=== PATIENT | female | born 1930 | race Caucasian/White ===

== ENCOUNTER → 2016-10-10 | Outpatient (CLI) | payer OTHER | LOC: FIMAGING 08:23 | PROVIDERS: ATTEND Internal Medicine | DX: Z13.820 Encounter for screening for osteoporosis (principal); M81.0 Age-related osteoporosis without current pathological fracture; Z78.0 Asymptomatic menopausal state; Z90.710 Acquired absence of both cervix and uterus; Z90.722 Acquired absence of ovaries, bilateral ==

== ENCOUNTER 2016-11-25 15:44 | Emergency (ER) | payer OTHER ==
[2016-11-25 15:58] VITALS: BP 138/89; PULSE 74; RESP 18; TEMP 97.5; O2SAT 94
--- NOTE | 2016-11-25 16:11 | EDPHY ---
H & P Stated Complaint: Laceration left forearm,slipped on carpet at home 12 today Time Seen by Provider: 11/25/16 16:04 HPI/ROS: CHIEF COMPLAINT: Left forearm skin tear HISTORY OF PRESENT ILLNESS: Patient is an 86-year-old female who tripped on her rug and fell around 4 hours ago. She had guests coming over to play games so she put a Band-Aid on it and then entertained her guests. After they left she came here to the emergency department. She did trim off the skin around her avulsion. She has placed antibiotic ointment on top of it. She is seeking further wound care. REVIEW OF SYSTEMS: Constitutional: denies: chills, fever, recent illness, recent injury EENTM: denies: blurred vision, double vision, nose congestion Respiratory: denies: cough, shortness of breath Cardiac: denies: chest pain, irregular heart rate, lightheadedness, palpitations Gastrointestinal/Abdominal: denies: abdominal pain, diarrhea, nausea, vomiting, blood streaked stools Genitourinary: denies: dysuria, frequency, hematuria, pain Musculoskeletal: denies: joint pain, muscle pain Skin: See HPI Neurological: denies: headache, numbness, paresthesia, tingling, dizziness, weakness Hematologic/Lymphatic: denies: blood clots, easy bleeding, easy bruising Immunologic/allergic: denies: HIV/AIDS, transplant EXAM: GENERAL: Well-appearing, well-nourished and in no acute distress. HEAD: Atraumatic, normocephalic. EYES: Pupils equal round and reactive to light, extraocular movements intact, sclera anicteric, conjunctiva are normal. ENT: TMs normal, nares patent, oropharynx clear without exudates. Moist mucous membranes. NECK: Normal range of motion, supple without lymphadenopathy or JVD. LUNGS: Breath sounds clear to auscultation bilaterally and equal. No wheezes rales or rhonchi. HEART: Regular rate and rhythm without murmurs, rubs or gallops. ABDOMEN: Soft, nontender, normoactive bowel sounds. No guarding, no rebound. No masses appreciated. BACK: No CVA tenderness, no spinal tenderness, step-offs or deformities EXTREMITIES: Normal range of motion, no pitting or edema. No clubbing or cyanosis. NEUROLOGICAL: Cranial nerves II through XII grossly intact. Normal speech, normal gait. 5/5 strength, normal movement in all extremities, normal sensation PSYCH: Normal mood, normal affect. SKIN: Skin avulsion 1 x 3 cm left forearm over ulnar aspect. Shallow. Clean Source: Patient Exam Limitations: No limitations - Personal History Current Tetanus/Diphtheria Vaccine: Unsure Current Tetanus Diphtheria and Acellular Pertussis (TDAP): Unsure - Medical/Surgical History Hx Asthma: No Hx Chronic Respiratory Disease: No Hx Diabetes: No Hx Cardiac Disease: Yes Hx Renal Disease: No Hx Cirrhosis: No Hx Alcoholism: No Hx HIV/AIDS: No Hx Splenectomy or Spleen Trauma: No Other PMH: PACEMAKER, tonsils, hysterectomy, 2 knee replacements, neck disc, appendectomy, carpel tunnel;ROBBIE(CPAP @ HS), Hx of UTIs, HTN, Hyperlipidemia, PVD , depression, anxiety, chronic constipation, chronic fatigue. - Family History Significant Family History: No pertinent family hx - Social History Smoking Status: Never smoked Alcohol Use: Sober Drug Use: None Constitutional: Initial Vital Signs Temperature (C) 36.4 C 11/25/16 15:54 Heart Rate 74 11/25/16 15:54 Respiratory Rate 18 11/25/16 15:54 Blood Pressure 138/89 H 11/25/16 15:54 O2 Sat (%) 94 11/25/16 15:54 O2 Delivery Mode Room Air Allergies/Adverse Reactions: morphine Allergy (Unknown, Verified 11/25/16 15:50) oxycodone HCl [From Percocet] Allergy (Unknown, Verified 11/25/16 15:50) propoxyphene HCl [From Darvon] Allergy (Unknown, Verified 11/25/16 15:50) propoxyphene napsylate [From Darvocet-N 100] Allergy (Unknown, Verified 15:50) Sulfa (Sulfonamide Antibiotics) Allergy (Unknown, Verified 11/25/16 15:50) Home Medications: Medication Instructions Recorded Vit C/Vit E AC/Lut/Copper/Zinc 1 tab PO DAILY 09/09/10 [Preservision Lutein Softgel] Diazepam [Valium 5 MG (*)] 1 mg PO HS 12/13/12 Glucosa [place] 2Kcl/Chondroitin Vega 500 mg PO DAILY 01/14/13 [Glucosamine & Chondroitin Cap] Herbals/Supplements -Info Only 1 each PO AD 01/14/13 Warfarin Sodium [Coumadin 5MG (*)] 5 mg PO SUMOTUWEFRSA@16 01/14/13 Warfarin Sodium [Coumadin 7.5MG 7.5 mg PO TH@16 01/14/13 (*)] Ascorbic Acid [Vitamin C 500 mg 500 mg PO DAILY 03/21/13 (*)] Pramipexole Di-HCl [Mirapex 1 mg 1 mg PO HS 03/21/13 (*)] Sennosides [Senokot] 1 each PO HS PRN 06/30/13 Atorvastatin Calcium [Lipitor 20 20 mg PO HS 12/19/13 mg (*)] Lansoprazole [Prevacid] 30 mg PO DAILY 12/19/13 Levothyroxine [Synthroid 50 mcg 50 mcg PO DAILY@12/19/13 (*)] [place]-3 Fatty Acids [Fish Oil 1000 1,000 mg PO DAILY 12/19/13 mg (*)] Citalopram Hydrobromide [Celexa] 11/25/16 Medical Decision Making ED Course/Re-evaluation: The patient has a skin avulsion that she has already removed the skin. We have cleaned and dressed it and taught her how to redress iy. She is happy with this and declines further workup or testing at this time. She does not think that it is broken and declines x-rays. I agree that this is reasonable. Differential Diagnosis: Partial list of the Differential diagnosis considered include but were not limited to; skin avulsion, abrasion, laceration and although unlikely based on the history and physical exam, I also considered fracture, non accidental trauma , burn. I discussed these differential diagnoses and the plan with the patient as well as the usual and expected course. The patient understands that the diagnosis is provisional and that in medicine we are not always correct and that further workup is often warranted. Usual and customary warnings were given. All of the patient's questions were answered. The patient was instructed to return to the emergency department should the symptoms at all worsen or return, otherwise to followup with the physician as we discussed. - Data Points Medications Given: Discontinued Medications Diphtheria/Tetanus/Acell Pertussis (Boostrix) 0.5 ml IM .ONCE ONE Stop: 11/25/16 16:17 Last Admin: 11/25/16 16:19 Dose: 0.5 ml Departure - Departure Disposition: Home, Routine, Self-Care Clinical Impression: Skin tear Condition: Fair Instructions: Skin Tear (ED) Additional Instructions: You may change your dressings daily. Keep clean and use antibiotic ointment Referrals: Isaac Tubbs MD [Primary Care Provider] - As per Instructions
[2016-11-25] MEDS ORDERED: TDAP ADULT 0.5 ML INJ (BOOSTRIX) IM ONE (16:16)
== END 2016-11-25 16:28 | disposition home or self-care (01) ==
LOC: CED 15:44
PROC: 3E0234Z Introduction of Serum, Toxoid and Vaccine into Muscle, Percutaneous Approach (ICD-10-PCS; principal; 2016-11-25)
DX: S51.812A Laceration without foreign body of left forearm, initial encounter (principal); I10 Essential (primary) hypertension; Z23 Encounter for immunization; Z79.01 Long term (current) use of anticoagulants; Z95.0 Presence of cardiac pacemaker; W01.0XXA Fall on same level from slipping, tripping and stumbling without subsequent striking against object, initial encounter

== ENCOUNTER 2017-06-27 12:01 | Emergency (ER) | payer OTHER ==
[2017-06-27 12:16] VITALS: TEMP 98.1
--- NOTE | 2017-06-27 12:21 | EDPHY ---
H & P Stated Complaint: rt jaw pain started last derek.(palpable pain),denies cp,sob Time Seen by Provider: 06/27/17 12:05 HPI/ROS: CHIEF COMPLAINT: Jaw pain HISTORY OF PRESENT ILLNESS: This is a 86-year-old female with a history of atrial fibrillation status post pacemaker placement presenting with jaw pain which she reports started last night. Patient indicates the pain is just anterior to her ear with tenderness to palpation. Denies any neck discomfort chest discomfort, chest pain, shortness of breath, palpitations. Reports that her jaw hurts when she eats but denies any tooth pain, heat or cold sensitivity. Discomfort started last night and has been continuous today. Denies any known fevers or chills. Denies vomiting, diarrhea, or urinary complaints lightheadedness or dizziness. No fever, chills, chest pain, shortness of breath, palpitations, vomiting, diarrhea, urinary complaints, headache, lightheadedness. REVIEW OF SYSTEMS: Aside from elements discussed in the HPI, a comprehensive 10-point review of systems was reviewed and is negative. PAST MEDICAL HISTORY: Atrial fibrillation, pacemaker, peripheral vascular disease, recent foot fracture on the right, in a boot. SOCIAL HISTORY: Lives at [facility] VITAL SIGNS Reviewed by me. GENERAL: Elderly female, looks uncomfortable. Tachypneic. HEENT: Atraumatic. Faint swelling noted to the right side of the face. No erythema. No warmth. Eyes: No icterus, no injection. Mouth: moist mucous membranes. Questionable erythema and swelling along the inferior distal gumline on the right, no posterior erythema. No lesions. Neck: supple with no adenopathy. LUNGS: Clear to auscultation bilaterally, no wheezes, rhonchi or rales. CARDIAC: Regular rate and rhythm, no rubs, murmurs or gallops. ABDOMEN: Soft, nontender, nondistended, bowel sounds normal. BACK: No CVA tenderness. EXTREMITIES: Right lower extremity is in a boot orthosis status post surgery. Full range of motion on the extremities. No edema. NEURO: Alert and oriented, grossly nonfocal. SKIN: Warm and dry, no rash. PSYCHIATRIC: No agitation. - Personal History Tetanus Vaccine Date: 2002 - Medical/Surgical History Hx Asthma: No Hx Chronic Respiratory Disease: No Hx Diabetes: No Hx Cardiac Disease: Yes Hx Renal Disease: No Hx Cirrhosis: No Hx Alcoholism: No Hx HIV/AIDS: No Hx Splenectomy or Spleen Trauma: No Other PMH: PACEMAKER, tonsils, hysterectomy, 2 knee replacements, neck disc, appendectomy, carpel tunnel;ROBBIE(CPAP @ HS), Hx of UTIs, HTN, Hyperlipidemia, PVD , depression, anxiety, chronic constipation, chronic fatigue. - Social History Smoking Status: Never smoked Constitutional: Initial Vital Signs Temperature (C) 36.7 C 06/27/17 12:07 Heart Rate 79 06/27/17 12:07 Respiratory Rate 20 06/27/17 12:07 Blood Pressure 148/93 H 06/27/17 12:07 O2 Sat (%) 94 06/27/17 12:07 O2 Delivery Mode Room Air O2 (L/minute) 2 Allergies/Adverse Reactions: morphine Allergy (Unknown, Verified 06/27/17 12:05) oxycodone HCl [From Percocet] Allergy (Unknown, Verified 06/27/17 12:05) propoxyphene HCl [From Darvon] Allergy (Unknown, Verified 06/27/17 12:05) propoxyphene napsylate [From Darvocet-N 100] Allergy (Unknown, Verified 12:05) Sulfa (Sulfonamide Antibiotics) Allergy (Unknown, Verified 06/27/17 12:05) Home Medications: Medication Instructions Recorded Vit C/Vit E AC/Lut/Copper/Zinc 1 tab PO DAILY 09/09/10 [Preservision Lutein Softgel] Diazepam [Valium 5 MG (*)] 1 mg PO HS 12/13/12 Glucosa Vega 2Kcl/Chondroitin Vega 500 mg PO DAILY 01/14/13 [Glucosamine & Chondroitin Cap] Herbals/Supplements -Info Only 1 each PO AD 01/14/13 Warfarin Sodium [Coumadin 5MG (*)] 5 mg PO SUMOTUWEFRSA@16 01/14/13 Warfarin Sodium [Coumadin 7.5MG 7.5 mg PO TH@01/14/13 (*)] Ascorbic Acid [Vitamin C 500 mg 500 mg PO DAILY 03/21/13 (*)] Pramipexole Di-HCl [Mirapex 1 mg 1 mg PO HS 03/21/13 (*)] Sennosides [Senokot] 1 each PO HS PRN 06/30/13 Atorvastatin Calcium [Lipitor 20 20 mg PO HS 12/19/13 mg (*)] Lansoprazole [Prevacid] 30 mg PO DAILY 12/19/13 Levothyroxine [Synthroid 50 mcg 50 mcg PO DAILY@05 12/19/13 (*)] [place]-3 Fatty Acids [Fish Oil 1000 1,000 mg PO DAILY 12/19/13 mg (*)] Citalopram Hydrobromide [Celexa] 11/25/16 Amoxicillin/Clavulanate Pot 875 mg PO BID #14 tab 06/27/17 [Augmentin 875 MG TAB (*)] Hydrocodone/APAP 5/325 [[place] 1 tab PO Q6H PRN #10 tab 06/27/17 5/325 (RX)] Medical Decision Making - Diagnostics EKG Interpretation: 12-LEAD EKG: Please see the full report in [facility]. My interpretation: Paced rhythm, no discordance, no acute ischemic changes Imaging Results: Impression: Inflammation in the region of the right temporomandibular joint/ parotid gland with no visible abscess. If symptoms persist and clinical suspicion warrants, consider repeat study. Findings discussed with Barb Leon MD on June 27, 2017 at 1428 hours. Dictated By: John Mcgovern MD ED Course/Re-evaluation: 86-year-old female presents to the emergency department with atraumatic onset of discomfort which is palpable just anterior to her right ear. Patient does have tenderness there. She has some swelling visible over the right side of her face. She is not febrile. She does appear uncomfortable secondary to the pain. IV was placed. Patient's EKG demonstrates no acute ischemic changes. She is paced however, with underlying history of atrial fibrillation. Laboratory evaluation demonstrates a normal white count, normal lactic acid, normal chemistries, negative troponin. Patient received Dilaudid for pain which provided good relief. She did have a maxillofacial CT. There is some soft tissue stranding and inflammatory changes anterior to the ear on the right side. Parotid is normal. No abscess is noted. No masses noted. Patient will be placed on Augmentin to treat for any early odontogenic source of infection or skin related source. She did receive a small dose of Toradol which improved her pain. She will be discharged with Vicodin. She was ingested to follow up with her primary care physician urgently on Thursday. She is comfortable with this plan. Differential Diagnosis: My differential my diagnosis Differential diagnoses for the patient's symptom complex was considered including but not limited to odontogenic infection, abscess, trigeminal neuralgia, TMJ source of pain, referred pain, acute coronary syndrome. - Data Points Laboratory Results: Laboratory Results 06/27/17 12:35 06/27/17 12:35 Medications Given: Discontinued Medications Amoxicillin/Clavulanate Potassium (Augmentin 875mg) 875 mg PO EDNOW ONE PRN Reason: Protocol Stop: 06/27/17 14:39 Last Admin: 06/27/17 15:22 Dose: 875 mg Hydromorphone HCl (Dilaudid) 0.5 mg IVP EDNOW ONE Stop: 06/27/17 12:33 Last Admin: 06/27/17 12:37 Dose: 0.5 mg Ondansetron HCl (Zofran) 4 mg IVP EDNOW ONE Stop: 06/27/17 12:45 Last Admin: 06/27/17 12:47 Dose: 4 mg Prednisone (Prednisone) 60 mg PO EDNOW ONE Stop: 06/27/17 14:39 Last Admin: 06/27/17 15:21 Dose: 60 mg Departure - Departure Disposition: Home, Routine, Self-Care Clinical Impression: Facial pain, Jaw pain, non-TMJ Condition: Good Instructions: Hydrocodone/Acetaminophen (By mouth), Amoxicillin/Clavulanate Potassium (By mouth), Trigeminal Neuralgia (ED), Temporomandibular Disorder (ED) , Atypical Facial Pain (ED) Additional Instructions: We have not identified a specific cause of your pain. The CT scan does show some swelling over the area pain. You been given an antibiotic. Please take this antibiotic as directed to help treat any infection which may be present. You have also been given a prescription for hydrocodone. Please take this as directed for pain. Please follow up on Thursday without fail with . Return to the emergency department or seek care urgently if your pain is worsening despite the above treatment, if you develop fevers, redness on the face, difficulty swallowing, significant pain in the teeth, or other concerns. Referrals: Isaac Tubbs MD [Primary Care Provider] - As per Instructions Prescriptions: Amoxicillin/Clavulanate Pot [Augmentin 875 MG TAB (*)] 875 mg PO BID #14 tab Hydrocodone/APAP 5/325 [[place] 5/325 (RX)] 1 tab PO Q6H PRN #10 tab PRN Reason: Pain
--- NOTE | 2017-06-27 12:25 | CPEKG ---
Heart Rate: 79 RR Interval: 759 QRSD Interval: 168 QT Interval: 472 QTC Interval: 542 QRS [place]: -60 T Wave [place]: 89 EKG Severity - ABNORMAL ECG - EKG Impression: AFIB/FLUT AND V-PACED COMPLEXES Electronically Signed By: Tanner Rapp 30-Jun-2017 21:35:42
[2017-06-27] MEDS ORDERED: HYDROmorphONE/DILAUDID 1 MG/ML INJ IVP ONE (12:32)
[2017-06-27 12:41] LABS: PLATELET COUNT 217 10^3/uL (150-400)
[2017-06-27] MEDS ORDERED: ONDANSETRON 4 MG/2 ML VIAL IVP ONE (12:44)
[2017-06-27 12:51] LABS: INR 2.31 (0.83-1.16); PROTIME(PATIENT) 24.8 SEC (12.0-15.0)
[2017-06-27] MEDS ORDERED: IOPAMIDOL (ISOVUE-300) 100 ML BTL ONE (13:19)
[2017-06-27] MEDS ORDERED: predniSONE 20 MG TAB PO ONE (14:38)
[2017-06-27] MEDS ORDERED: AMOXICILLIN/CLAVULANATE POT 875/125 MG TAB PO ONE (14:38)
[2017-06-27 19:18] VITALS: O2SAT 96
[2017-06-27 19:59] VITALS: BP 118/72; PULSE 82; RESP 18
--- NOTE | 2017-06-29 09:42 | ASMTCMCOM ---
CM Note CM Note Notes: Followed up with patient's PCP Dr Tubbs's [employer]les[employer] Helper, Patricia ([phone]) and discussed patient's recent [facility] [place] on 06/27/[place]. Patricia says patient was seen on 06/25 and has another appointment scheduled for 07/03/17. Patricia says she will reach out to the patient and her daughter, Barb Rey ([phone]) to see if patient needs to be seen sooner and to discuss possible homecare (skilled or non-skilled) or higher level of care (assisted living). Patient currently lives in Independent Living at [facility]. CM available for further assistance. Date Signed: 06/29/2017 09:42 AM Electronically Signed By:Tatiana Yang RN
--- NOTE | 2017-06-29 09:46 | ASDISCHSUM ---
Discharge Information Plan Status:Home with No Needs Medically Cleared to Leave: Discharge Date:06/27/2017 03:10 PM CM D/C Disposition:Home, Routine, Self-Care ADT D/C Disposition:Home, Routine, Self-Care Projected Discharge Date:06/27/2017 03:10 PM Transportation at D/C:Family Discharge Delay Reason: Follow-Up Date:06/27/2017 03:10 PM Discharge Slot: Final Diagnosis: Placement Information Patient Contact Information Contact Name:JESUS Relationship:Daughter Address: Work Phone: City:[place] Alternate Phone: State/Zip Code:[place] [address] Email: Financial Information Financial Class: Primary Plan Desc:MEDICARE OUTPATIENT Primary Plan Number:[id number] Secondary Plan Desc:SURJIT PPO Secondary Plan Number:[id number] Assessment Information [facility] CM Progress Note CM Note CM Note Notes: Followed up with patient's PCP Dr Tubbs's Chief Of Pediatric Urology, Patricia ([phone]) and discussed patient's recent [facility] ED visit on 06/27/17. Patricia says patient was seen on 06/25 and has another appointment scheduled for 07/03/17. Patricia says she will reach out to the patient and her daughter, Barb Rey ([phone]) to see if patient needs to be seen sooner and to discuss possible homecare (skilled or non-skilled) or higher level of care (assisted living). Patient currently lives in Independent Living at [facility]. CM available for further assistance. Date Signed: 06/29/2017 09:42 AM Electronically Signed By:Tatiana Yang RN LACE LACE Acuity / Level of Care Answers: No. Comorbidities - select Answers: Peripheral vascular all that apply disease Emergency dept visits in Answers: 2 last 6 months Score: 3 Date Signed: 06/29/2017 09:43 AM Electronically Signed By:Tatiana Yang RN Intervention Information Intervention Type:Health Clinic Date of Service:06/29/2017 09:44 AM Patient Type:Emergency Room Staff Member:AMY Yang, Tatiana Hours:0.25 Discipline:Clerical Warehouse Worker Severity: Comment:Followed up with patient's PCP Dr. Everton cui's Chief Of Pediatric Urology, PatriciaYane
== END 2017-06-27 15:10 | disposition home or self-care (01) ==
LOC: CED 12:01
DX: R68.84 Jaw pain (principal); R51 Headache; Z79.01 Long term (current) use of anticoagulants; Z95.0 Presence of cardiac pacemaker
CPT/HCPCS: 70487; 93005; 96374; 96375; 99285; J1170; J2405; Q9967; 80048-PO; 80076-PO; 83605-PO; 83690-PO; 84484-PO; 85025-PO; 85610-PO

== ENCOUNTER → 2018-09-01 | Outpatient (CLI) | payer OTHER | LOC: FIMAGING 16:48 | PROVIDERS: ATTEND Internal Medicine | DX: M47.896 Other spondylosis, lumbar region (principal); M12.88 Other specific arthropathies, not elsewhere classified, other specified site ==